=== PATIENT | female | born 1995 | race Caucasian/White ===

== ENCOUNTER 2017-07-30 10:01 | Emergency (ER) | payer OTHER ==
--- NOTE | 2017-07-30 10:27 | EDPHY ---
H & P Stated Complaint: walking home last night felt pop and has hx of 12 broken bones Time Seen by Provider: 07/30/17 10:22 HPI/ROS: HPI: This is a 22-year-old female who presents with Chief Complaint: walking home last night felt pop and has hx of 12 broken bones Location: Right knee Quality: injury Duration: Last night Signs and Symptoms: No bleeding, no radiation, no numbness, no weakness, no tingling, + decreased range of motion, + swelling, + pain, no fever Timing: Acute Severity: Moderate Context: Patient reports that she was drinking alcohol last night and she accidentally slipped in the wet grass. Reports that she was wearing flat shoes. Her right knee hyperextended and caused severe, constant, nonradiating pain. Patient woke up this morning with swelling in her knee and decreased range of motion secondary to pain. Patient reports that pain is worsened with flexion and weight-bearing. Takes extended control. Modifying Factors: Has not taking [id number] pain medications like Tylenol or ibuprofen Comment: ROS: see HPI Constitutional: No fever, no chills, no weight loss Eyes: No blurred vision Respiratory: No shortness of breath, no cough Cardiovascular: No chest pain Gastrointestinal: No nausea, no vomiting no diarrhea Genitourinary: No dysuria Extremities: No myalgias Neurologic: No weakness, no numbness Skin: No rashes Hematologic: No bruising, no bleeding MEDICAL/SURGICAL/SOCIAL HISTORY: Medical history: Generally healthy. Does not take any regular medications. Surgical history: Denies Social history: Student. Current some day smoker. CONSTITUTIONAL: Extremely polite and cooperative young adult white female, awake and alert, no obvious distress HEENT: Atraumatic and normocephalic. EXTREMITIES: 2/2 pulses, strength 5/5, right KNEE: Moderate suprapatellar effusion, moderate medial and lateral joint line tenderness, full extension to 180, flexion limited to 40. Patient would not allow me to perform varus and valgus exam or anterior drawer or posterior drawer test secondary to pain. Right Ankle: Plantar flexion to 50, dorsiflexion to 20. Foot inversion to 35 degree. No tenderness/swelling Anterior talofibular ligament. No tenderness/ swelling Calcaneofibular ligament, no tenderness/swelling posterior talofibular ligament, no tenderness/swelling posterior inferior tibiofibular ligament. Achilles tendon intact. DIP/PIP/MCP flexion/extension intact with good light touch sensation. no deformities, no clubbing, no cyanosis or edema. NEUROLOGICAL: no focal neuro deficits. GCS 15. Light touch sensation intact. SKIN: Warm and dry, no erythema. no rash. Good capillary refill. Source: Patient Exam Limitations: No limitations - Personal History LMP (Females 10-55): Extended Cycle BCP/Inj Current Tetanus/Diphtheria Vaccine: Yes Current Tetanus Diphtheria and Acellular Pertussis (TDAP): Yes - Medical/Surgical History Hx Asthma: No Hx Chronic Respiratory Disease: No Hx Diabetes: No Hx Cardiac Disease: No Hx Renal Disease: No Hx Cirrhosis: No Hx Alcoholism: No Hx HIV/AIDS: No Hx Splenectomy or Spleen Trauma: No Other PMH: denies per pt - Social History Smoking Status: Current some day smoker Constitutional: Initial Vital Signs Temperature (C) 36.8 C 07/30/17 10:08 Heart Rate 85 07/30/17 10:08 Respiratory Rate 16 07/30/17 10:08 Blood Pressure 155/109 H 07/30/17 10:08 O2 Sat (%) 97 07/30/17 10:08 O2 Delivery Mode Room Air Allergies/Adverse Reactions: No Known Allergies Allergy (Unverified 07/30/17 10:07) Home Medications: Medication Instructions Recorded Bcp 07/30/17 oxyCODONE/APAP 5/325 [Percocet 1 - 2 tab PO Q4H PRN #10 tab 07/30/17 5/325 (*)] Medical Decision Making - Diagnostics Imaging Results: Imaging Impressions Knee X-Ray 07/30/17 10:16 Impression: Mildly comminuted, minimally displaced medial tibial plateau fracture. Lipohemarthrosis. ED Course/Re-evaluation: Right knee x-ray ordered and my read via PAC shows moderate suprapatellar effusion with avulsion fracture on the tibial plateau edge-medial aspect Concern for ACL injury versus extensor mechanism injury versus tibial plateau fracture Patient placed in knee immobilizer, crutches, toe-touch weight-bearing status, Ortho follow-up No signs of neurovascular compromise/tenting of skin/compartment syndrome/ extremities and joints examined above and below area of concern and are neurovascularly intact. This patient was seen under the supervision of my secondary supervising physician. I evaluated care for this patient independently. Discussed this patient with Dr. Pittman who did not see the patient. Differential Diagnosis: Knee injury while including but not limited to fracture, ACL injury, contusion, muscular strain, and meniscus injury. - Data Points Medications Given: Discontinued Medications Oxycodone/Acetaminophen (Percocet 5/325) 1 tab PO EDNOW ONE Stop: 07/30/17 10:51 Last Admin: 07/30/17 10:55 Dose: 1 tab Oxycodone/Acetaminophen (Percocet 5/325) 1 tab PO EDNOW ONE Stop: 07/30/17 10:51 Last Admin: 07/30/17 10:55 Dose: Not Given Departure - Departure Disposition: Home, Routine, Self-Care Clinical Impression: Effusion of right knee Fracture of tibial plateau, closed Qualifiers: Encounter type: initial encounter Laterality: right Qualified Code(s): S82.141A - Displaced bicondylar fracture of right tibia, initial encounter for closed fracture Condition: Good Instructions: Oxycodone/Acetaminophen (By mouth), ACL Injury (ED), Swollen Knee Joint (ED) Additional Instructions: Wear the knee immobilizer while out of bed. Use crutches to aid ambulation. Start with toe-touch weight-bearing status. Take Tylenol 650 mg every 4 hours and/or Ibuprofen 600 mg every 8 hours with food as needed for pain. Use Percocet every 6 hours as needed for severe/break through pain. Do not use Tylenol and Percocet concomitantly. Apply ice for 30 minutes at a time; 2-3 times per day for the next 1-2 days. Follow up with Orthopedics in 3-5 days at which time they will evaluate and recommend with you if conservative management versus further adjuvant therapy including if imaging or surgery is indicated. Return to the ER immediately if you experience new or worsening pain, discoloration, numbness, tingling, or any other symptoms that concern you. Referrals: Matthew Camacho MD [Medical Doctor] - Prescriptions: oxyCODONE/APAP 5/325 [Percocet 5/325 (*)] 1 - 2 tab PO Q4H PRN #10 tab PRN Reason: Pain, Severe
[2017-07-30] MEDS ORDERED: IBUPROFEN 600 MG TAB PO ONE (10:50)
[2017-07-30] MEDS ORDERED: OXYCODONE/APAP 5/325 TAB PO ONE (10:50)
[2017-07-30] MEDS: OXYCODONE/APAP 5/325 TAB PO ONE ×2 (10:55)
--- NOTE | 2017-07-30 11:23 | ASDISCHSUM ---
Discharge Information Plan Status:Home with No Needs Medically Cleared to Leave: Discharge Date: CM D/C Disposition:Home, Routine, Self-Care ADT D/C Disposition:Home, Routine, Self-Care Projected Discharge Date: Transportation at D/C:Friend Discharge Delay Reason: Follow-Up Date: Discharge Slot: Final Diagnosis: Placement Information Patient Contact Information Contact Name:CORRINEMITALI Relationship:Friend Address: Work Phone: City: [facility] Phone: State/[place] Code: Email: Financial Information Financial Class:[facility] Primary Plan Desc:[facility] Primary Plan Number:[id number] Secondary Plan Desc: Secondary Plan Number: Assessment Information CAGE Questionnaire CAGE Do you feel you ought to Answers: No cut down on your drinking or drug use? Do people annoy you by Answers: No criticizing your drinking or drug use? Do you feel guilty about Answers: No your drinking or drug use? Do you drink or use drugs Answers: No first thing in the morning ([employer])? Date Signed: 07/30/2017 11:22 AM Electronically Signed By:Bela Ewdards RN Intervention Information
[2017-07-30 11:36] VITALS: BP 125/78
== END 2017-07-30 11:36 | disposition home or self-care (01) ==
DX: S82.141A Displaced bicondylar fracture of right tibia, initial encounter for closed fracture (principal); F17.200 Nicotine dependence, unspecified, uncomplicated; X50.9XXA Other and unspecified overexertion or strenuous movements or postures, initial encounter; Y92.009 Unspecified place in unspecified non-institutional (private) residence as the place of occurrence of the external cause; Y99.8 Other external cause status; Y93.01 Activity, walking, marching and hiking
CPT/HCPCS: L1830

== ENCOUNTER → 2017-12-19 | Outpatient (CLI) | payer OTHER | LOC: BMCIMAGING 12:56 | PROVIDERS: ATTEND Physician Assistant | DX: M85.89 Other specified disorders of bone density and structure, multiple sites (principal); S82.209D Unspecified fracture of shaft of unspecified tibia, subsequent encounter for closed fracture with routine healing ==